=== PATIENT | male | born 1990 | race Caucasian/White ===

== ENCOUNTER 2023-08-13 17:00 | Outpatient (CLI) | payer OTHER | END 2023-08-13 17:01 | disposition home or self-care (01) | LOC: SLEEPLAB 17:00 | PROVIDERS: ATTEND Family Medicine | DX: G47.00 Insomnia, unspecified (principal); G47.61 Periodic limb movement disorder; F41.9 Anxiety disorder, unspecified; G31.84 Mild cognitive impairment of uncertain or unknown etiology; R53.83 Other fatigue; R40.0 Somnolence; R09.89 Other specified symptoms and signs involving the circulatory and respiratory systems; R51.9 Headache, unspecified; R06.83 Snoring | CPT/HCPCS: 95800 ==